=== PATIENT | female | born 1980 | race Caucasian/White ===

== ENCOUNTER 2018-11-26 14:49 | Emergency (ER) | payer BC ==
[~2018-11-26] VITALS: Ht 165.1 cm; Wt 97.7 kg
[2018-11-26 15:07] VITALS: BP 172/99; TEMP 97.4
[2018-11-26] MEDS ORDERED: COZAAR 50MG50 MG/TAB PO (15:57)
[2018-11-26] MEDS ORDERED: ZYRTEC 10MG10 MG PO (15:58)
[2018-11-26] MEDS ORDERED: SINGULAIR 110 MG/TAB PO (15:58)
[2018-11-26] MEDS ORDERED: XOPENEX HF0.045 MG/A INH (15:59)
[2018-11-26 16:20] VITALS: PULSE 89
== END 2018-11-26 16:20 | disposition home or self-care (01) ==
LOC: COL.ER 14:49
DX: S93.402A Sprain of unspecified ligament of left ankle, initial encounter (principal); X50.1XXA Overexertion from prolonged static or awkward postures, initial encounter; Y93.E9 Activity, other interior property and clothing maintenance; Y92.009 Unspecified place in unspecified non-institutional (private) residence as the place of occurrence of the external cause

== ENCOUNTER → 2019-05-24 | Outpatient (CLI) | payer BC ==
[~2019-05-24] MED LIST: COZAAR 50MG50 MG/TAB PO; PREDNISONE20 MG PO; SINGULAIR 110 MG/TAB PO; XOPENEX HF0.045 MG/A IH; XOPENEX HF0.045 MG/A INH; ZYRTEC 10MG10 MG PO
== END ==
LOC: COL.RAD 13:00
DX: S43.432A Superior glenoid labrum lesion of left shoulder, initial encounter (principal)
CPT/HCPCS: A9585; Q9967

== ENCOUNTER → 2020-12-31 | Outpatient (CLI) | payer BC | LOC: COL.PUL 07:31 | DX: J45.40 Moderate persistent asthma, uncomplicated (principal); Z87.891 Personal history of nicotine dependence ==

== ENCOUNTER → 2023-11-10 | Outpatient (CLI) | payer BC ==
[~2023-11-10] MED LIST changes: +FLAGYL500 MG PO; +IBU800 M1 PO; +LEVAQUIN 750MG750 M1 PO; +NORCO 325 MG-51 TAB PO
== END ==
LOC: MC.RAD 08:30
DX: Z12.31 Encounter for screening mammogram for malignant neoplasm of breast (principal)